=== PATIENT | female | born 1995 | race Caucasian/White ===

== ENCOUNTER 2018-09-13 10:18 | Outpatient (CLI) | payer MEDICAID, SELFPAY ==
[2018-09-13 11:13] LABS: HCT 40.4 % (36.0-46.0); HGB 13.6 g/dL (12.0-15.5); Mean Corp. HGB Concentration 33.7 g/dL (32.0-36.0); Mean Corpuscular Hemoglobin 30.2 pg (27.0-33.0); Mean Corpuscular Volume 89.8 fL (80-95); Mean Platelet Volume 12.1 fL (8.0-11.0); Platelet Count 213 x1000/uL (130-400); RBC Distribution Width 14.1 % (11.7-14.6)
[2018-09-13 12:02] LABS: ALT 35 U/L (12-78); AST 19 U/L (15-37); Albumin 3.9 g/dL (3.4-5.0); Alkaline Phosphatase 74 U/L (46-116); Anion Gap 11.4 mmol/L (3-11); BUN 13 mg/dL (7-18); Bilirubin, Total 0.5 mg/dL (0.2-1.0); CO2 25.6 mmol/L (21.0-32.0); CREATININE 0.91 mg/dL (0.55-1.02); Calcium 9.2 mg/dL (8.5-10.1); Chloride 106 mmol/L (98-107); Glucose 82 mg/dL (70-100); Potassium 4.5 mmol/L (3.5-5.1); Sodium 143 mmol/L (136-145); TSH (W/Ref FT4) 1.48 uIU/mL (0.358-3.74); Total Protein 7.2 g/dL (6.4-8.2)
== END 2018-09-13 10:38 ==
PROVIDERS: PCP Internal Medicine; Visit Provider Nurse Practitioner Family
DX: R53.83 Other fatigue (principal); F41.8 Other specified anxiety disorders; M25.50 Pain in unspecified joint; M79.10 Myalgia, unspecified site
CPT/HCPCS: 36415; 80053; 85027; 84443

== ENCOUNTER 2022-08-14 00:17 | Outpatient (CLI) | payer BC, SELFPAY ==
--- NOTE | 2022-08-14 07:50 | DI.RAD_ITS ---
Exam(s) XR KNEE RT 3V AP,LAT,CHRIS EXAM: XR KNEE RT 3V AP,LAT,CHRIS CLINICAL HISTORY: RT KNEE PAIN, SWELLING, M25.561. TECHNIQUE: 2D digital imaging was performed. Three views. COMPARISON: No exams were available for comparison FINDINGS: BONES: No acute fracture is present. No bony destructive lesion is seen. JOINTS: The joint spaces are maintained. The knee is normally aligned. No joint effusion is seen. SOFT TISSUE: Normal. IMPRESSION: Unremarkable radiographs of the right knee. DATA REPOSITORY: RADIATION DOSE DELIVERED:
== END 2022-08-14 00:37 ==
PROVIDERS: PCP Internal Medicine; Visit Provider Family Medicine
DX: M25.561 Pain in right knee (principal); M25.461 Effusion, right knee
CPT/HCPCS: 73562

== ENCOUNTER 2023-02-11 15:37 | Outpatient (REF) | payer BC, SELFPAY ==
--- NOTE | 2023-02-11 10:40 | PAPFT_PTH ---
PATIENT: Jayne Mott LOC: [facility]#:[id number] AGE/SX: 28/F ROOM: RE02/11/[address]: Vivi Portillo : 1995 BED: DIS: 02/11/2023 SPEC #: [id number] RECD: 02/11/23 17:31 STATUS: JIL REQ #: [id number] MOON: 02/11/23 10:[address]: Vivi Portillo DEPT: [facility] Cytology RECD BY: Mary Olivera ENTERED: 02/11/23 17:31 SP TYPE: PAPFT OTHR DR: Pasquale Recio Tissues: 1 - CX/ENDOCX FOR PAP SMEARS Procedures: PAP THIN PREP/[facility] Screening Comments: [id number]
[2023-02-11 16:33] LABS: Abs Immature Grans 0.01 10^3/uL (0.0-0.06); Absolute Basophil Count 0.05 10^3/uL (0.0-0.2); Absolute Eosinophil Count 0.15 10^3/uL (0.0-0.7); Absolute Lymphocyte Count 1.64 10^3/uL (1.2-3.4); Absolute Monocyte Count 0.39 10^3/uL (0.1-0.8); Absolute Neutrophil Count 3.39 10^3/uL (1.2-6.7); Basophils % 0.9; Eosinophils % 2.7; HCT 40.7 % (36.0-46.0); HGB 13.3 g/dL (11.2-15.7); Immature Grans % 0.2; Lymphocytes % 29.1; MCH 29.8 pg (27.0-33.0); MCHC 32.7 % (32.0-36.0); MCV 91 fL (80-95); MPV 11.8 fL (8.0-11.0); Monocytes % 6.9; Neutrophils % 60.2; Platelet Count 319 10^3/uL (130-400); RBC 4.46 10^6/uL (3.93-5.22); RDW 13.4 % (11.7-14.6); RDW-SD 44.7 fL; WBC 5.63 10^3/uL (4.4-10.8)
[2023-02-11 16:49] LABS: ALT 40 U/L (14-59); AST 27 U/L (15-37); Albumin 3.2 g/dL (3.4-5.0); Alkaline Phosphatase 180 U/L (46-116); Anion Gap 8.9 mmol/L (3-11); BUN 9 mg/dL (7-18); Bilirubin, Total 0.4 mg/dL (0.2-1.0); CO2 26.1 mmol/L (21.0-32.0); CREATININE 1.1 mg/dL (0.55-1.02); Calcium 8.9 mg/dL (8.5-10.1); Calculated LDL 105 mg/dL (<100); Chloride 105 mmol/L (98-107); Cholesterol 184 mg/dL (<200); Estimated GFR 70.63 (mL/min/1.73m2); Glucose 99 mg/dL (74-106); HDL Cholesterol 63 mg/dL (40-60); Potassium 3.8 mmol/L (3.5-5.1); Sodium 140 mmol/L (136-145); Total Protein 7.6 g/dL (6.4-8.2); Triglyceride 81 mg/dL (<150)
== END 2023-02-11 15:38 | disposition home or self-care (01) ==
LOC: NCHCN 15:37
PROVIDERS: PCP Internal Medicine; Visit Provider Family Medicine
DX: Z00.00 Encounter for general adult medical examination without abnormal findings (principal); Z12.4 Encounter for screening for malignant neoplasm of cervix; Z01.419 Encounter for gynecological examination (general) (routine) without abnormal findings
CPT/HCPCS: 80053; 80061; 88142; 85025

== ENCOUNTER 2023-02-25 13:01 | Outpatient (REF) | payer BC, SELFPAY ==
[2023-02-25 14:49] LABS: Abs Immature Grans 0.02 10^3/uL (0.0-0.06); Absolute Basophil Count 0.05 10^3/uL (0.0-0.2); Absolute Eosinophil Count 0.16 10^3/uL (0.0-0.7); Absolute Lymphocyte Count 1.63 10^3/uL (1.2-3.4); Absolute Monocyte Count 0.44 10^3/uL (0.1-0.8); Absolute Neutrophil Count 3.67 10^3/uL (1.2-6.7); Basophils % 0.8; Eosinophils % 2.7; HCT 39.9 % (36.0-46.0); HGB 13.2 g/dL (11.2-15.7); Immature Grans % 0.3; Lymphocytes % 27.3; MCH 30.1 pg (27.0-33.0); MCHC 33.1 % (32.0-36.0); MCV 91 fL (80-95); MPV 10.6 fL (8.0-11.0); Monocytes % 7.4; Neutrophils % 61.5; Platelet Count 318 10^3/uL (130-400); RBC 4.38 10^6/uL (3.93-5.22); RDW 13.5 % (11.7-14.6); RDW-SD 45.5 fL; WBC 5.97 10^3/uL (4.4-10.8)
[2023-02-25 15:03] LABS: ALT 28 U/L (14-59); AST 20 U/L (15-37); Albumin 3.1 g/dL (3.4-5.0); Alkaline Phosphatase 137 U/L (46-116); Anion Gap 9.3 mmol/L (3-11); BUN 9 mg/dL (7-18); Bilirubin, Total 0.5 mg/dL (0.2-1.0); CO2 26.7 mmol/L (21.0-32.0); Calcium 9.3 mg/dL (8.5-10.1); Calculated LDL 110 mg/dL (<100); Chloride 105 mmol/L (98-107); Cholesterol 191 mg/dL (<200); Estimated GFR 79.19 (mL/min/1.73m2); Glucose 88 mg/dL (74-106); HDL Cholesterol 66 mg/dL (40-60); Potassium 5.1 mmol/L (3.5-5.1); Sodium 141 mmol/L (136-145); Total Protein 6.9 g/dL (6.4-8.2); Triglyceride 75 mg/dL (<150)
[2023-02-25 15:52] LABS: GGT 53 U/L (5-55)
== END 2023-02-25 13:02 | disposition home or self-care (01) ==
LOC: NCHCN 13:01
PROVIDERS: PCP Internal Medicine; Visit Provider Family Medicine
DX: Z68.30 Body mass index [BMI] 30.0-30.9, adult (principal); E66.9 Obesity, unspecified
CPT/HCPCS: 80053; 80061; 82977; 85025

== ENCOUNTER 2023-08-17 09:42 | Outpatient (CLI) | payer BC, SELFPAY ==
[2023-08-17 10:35] LABS: TSH (W/Ref FT4) 2.95 uIU/mL (0.36-3.74)
== END 2023-08-17 09:43 | disposition home or self-care (01) ==
LOC: LBO 09:43
PROVIDERS: PCP Internal Medicine; Visit Provider Family Medicine
DX: R00.0 Tachycardia, unspecified (principal)
CPT/HCPCS: 36415; 84443